=== PATIENT | male | born 1990 | race Caucasian/White ===

== ENCOUNTER → 2017-10-12 | Outpatient (CLI) | payer MEDICAID | LOC: FIMAGING 16:12 | PROVIDERS: ATTEND Registered Nurse | DX: M25.572 Pain in left ankle and joints of left foot (principal) ==

== ENCOUNTER → 2017-12-21 | Outpatient (CLI) | payer MEDICAID | LOC: FIMAGING 12:10 | PROVIDERS: ATTEND Allergy & Immunology Allergy | DX: R06.00 Dyspnea, unspecified (principal); R07.89 Other chest pain; R42 Dizziness and giddiness ==